=== PATIENT | female | born 1970 | race Caucasian/White ===

== ENCOUNTER 2021-08-06 19:04 | Inpatient (IN) | payer OTHER ==
[2021-08-06 19:30] VITALS: BMI 29.2
[2021-08-06 23:05] LABS: BASO % 0.5 % (0-2.0); EOS % 1.2 % (0-4.5); HEMOGLOBIN 11.3 GM/dL (10.7-15.3); LYMPH % 26.9 % (8-40); MCH 30.3 pg (25.7-33.7); MCHC 34.2 g/dl (32.0-36.0); MEAN CELL VOLUME 88.7 fl (80-96); MONO % 8.5 % (3.8-10.2); NEUT % 62.9 % (42.8-82.8); RBC 3.72 M/mm3 (3.60-5.2); RDW 12.5 % (11.6-15.6)
[2021-08-06 23:24] LABS: INR 0.97 (0.83-1.09); PROTHROMBIN TIME (PATIENT) 11.2 SEC (9.7-13.0)
[2021-08-06 23:26] LABS: CALCIUM 8.5 mg/dL (8.5-10.1)
[2021-08-06 23:27] LABS: ALBUMIN 3.5 g/dl (3.4-5.0); BLOOD UREA NITROGEN 16.2 mg/dL (7-18)
[2021-08-06 23:30] LABS: CREATININE 0.8 mg/dL (0.55-1.3)
[2021-08-06 23:31] LABS: BILIRUBIN,TOTAL 0.2 mg/dL (0.2-1)
[2021-08-06 23:32] LABS: TOT PROT 6.6 g/dl (6.4-8.2)
[2021-08-06 23:40] LABS: MEAN PLT VOLUME 10.1 fl (7.5-11.1)
[2021-08-07] MEDS ORDERED: POLYETHYLENE GLYCOL (HEALTHYLAX) 3350 17 GM PACKET PO PRN (00:49)
[2021-08-07 06:33] LABS: BASO % 0.5 % (0-2.0); EOS % 1.5 % (0-4.5); HEMOGLOBIN 10.5 GM/dL (10.7-15.3); LYMPH % 30.9 % (8-40); MCH 30.1 pg (25.7-33.7); MCHC 33.9 g/dl (32.0-36.0); MEAN CELL VOLUME 88.8 fl (80-96); MEAN PLT VOLUME 10.6 fl (7.5-11.1); MONO % 9.9 % (3.8-10.2); NEUT % 57.2 % (42.8-82.8); RDW 12.7 % (11.6-15.6); WHITE BLOOD COUNT 7.5 K/mm3 (4.0-10.0)
[2021-08-07 06:41] LABS: PLATELET COUNT 15 10^3/uL (134-434)
[2021-08-07 06:53] LABS: CALCIUM 7.9 mg/dL (8.5-10.1)
[2021-08-07 06:54] LABS: BLOOD UREA NITROGEN 16.6 mg/dL (7-18)
[2021-08-07 06:57] LABS: CREATININE 0.6 mg/dL (0.55-1.3)
[2021-08-07 13:20] LABS: PLATELET COUNT 17 10^3/uL (134-434)
[2021-08-07] MEDS ORDERED: ACETAMINOPHEN 325 MG TABLET (FP) PO PRN (13:20)
[2021-08-07] MEDS: DEXAMETHASONE 4 MG TABLET (FP) PO SCH (14:00)
[2021-08-07 14:33] LABS: URIC ACID 3.8 mg/dL (2.6-7.2)
[2021-08-07 15:26] LABS: HIV INTERPRETATION NEGATIVE (NEGATIVE)
[2021-08-07] MEDS ORDERED: IMMUN GLOB G(IGG)/PRO/IGA 0-50 600 ML, IMMUN GLOB G(IGG)/PRO/IGA 0-50 100 ML IVPB ONE (16:00)
[2021-08-08] MEDS: ACETAMINOPHEN 325 MG TABLET (FP) PO PRN (07:22)
[2021-08-08 08:27] LABS: HEMATOCRIT 32.2 % (32.4-45.2); HEMOGLOBIN 10.8 GM/dL (10.7-15.3); MCHC 33.7 g/dl (32.0-36.0); MEAN PLT VOLUME 11.8 fl (7.5-11.1); RBC 3.62 M/mm3 (3.60-5.2); RDW 12.9 % (11.6-15.6); WHITE BLOOD COUNT 11.8 K/mm3 (4.0-10.0)
[2021-08-08 08:58] LABS: ALBUMIN 3.2 g/dl (3.4-5.0); CALCIUM 8.6 mg/dL (8.5-10.1)
[2021-08-08 09:00] LABS: BLOOD UREA NITROGEN 13.4 mg/dL (7-18)
[2021-08-08 09:03] LABS: CREATININE 0.7 mg/dL (0.55-1.3); TOT PROT 7.9 g/dl (6.4-8.2)
[2021-08-08 09:05] LABS: BILIRUBIN,TOTAL 0.6 mg/dL (0.2-1)
[2021-08-08 09:24] LABS: PLATELET COUNT 29 10^3/uL (134-434)
[2021-08-08] MEDS: DEXAMETHASONE 4 MG TABLET (FP) PO SCH (09:52)
[2021-08-08] MEDS ORDERED: IMMUN GLOB G(IGG)/PRO/IGA 0-50 600 ML, IMMUN GLOB G(IGG)/PRO/IGA 0-50 100 ML IVPB ONE (16:00)
[2021-08-08] MEDS ORDERED: ACETAMINOPHEN 325 MG TABLET (FP) PO ONE (18:45)
[2021-08-09] MEDS: ACETAMINOPHEN 325 MG TABLET (FP) PO PRN (01:10)
[2021-08-09 11:26] LABS: HEMATOCRIT 31.7 % (32.4-45.2); HEMOGLOBIN 10.3 GM/dL (10.7-15.3); MCH 29.3 pg (25.7-33.7); MCHC 32.5 g/dl (32.0-36.0); MEAN CELL VOLUME 89.9 fl (80-96); MEAN PLT VOLUME 10.8 fl (7.5-11.1); PLATELET COUNT 107 10^3/uL (134-434); RBC 3.52 M/mm3 (3.60-5.2); WHITE BLOOD COUNT 20.5 K/mm3 (4.0-10.0)
[2021-08-09 11:56] LABS: CALCIUM 8.4 mg/dL (8.5-10.1)
[2021-08-09 11:57] LABS: ALBUMIN 3.2 g/dl (3.4-5.0); BLOOD UREA NITROGEN 17.6 mg/dL (7-18)
[2021-08-09 12:00] LABS: CREATININE 0.8 mg/dL (0.55-1.3)
[2021-08-09 12:01] LABS: TOT PROT 9.4 g/dl (6.4-8.2)
[2021-08-09 12:02] LABS: BILIRUBIN,TOTAL 0.3 mg/dL (0.2-1)
[2021-08-09] MEDS: DEXAMETHASONE 4 MG TABLET (FP) PO SCH (12:16)
[2021-08-09 12:17] LABS: ANISOCYTOSIS 1+; MACROCYTOSIS 1+; OVALOCYTE 2+
[2021-08-09 13:59] VITALS: BP 140/85; PULSE 89; TEMP 98.4
== END 2021-08-09 16:01 | disposition home or self-care (01) | DRG 661 ==
LOC: JER 19:04 → JERBED 08-07 00:51 → J8W 08-07 06:20 → OBSVTOIN 08-07 15:47
PROVIDERS: ADMIT Hospitalist; ATTEND Internal Medicine
DX: D69.3 Immune thrombocytopenic purpura (principal); R04.0 Epistaxis; D72.829 Elevated white blood cell count, unspecified
CPT/HCPCS: 36415; 71046-TC-FY; 76700-TC; 80048; 80053; 83010; 83615; 84550; 84703; 85025; 85027; 85032; 85045; 85610; 85730; 86705; 86803; 87338; 87340; 87389; 87517; 93005; 93010; 99285-25; C9803-CS; G0378; J1459; U0003; U0005